=== PATIENT | male | born 1945 | race Caucasian/White ===

== ENCOUNTER 2023-09-26 17:28 | Emergency (ER) | payer MEDICARE, SELFPAY ==
[2023-09-26 17:30] VITALS: BP 145/70; BMI 35.0
[2023-09-26 18:19] LABS: % Basophils 0.4 % (0-2); % Immature Granulocytes 0.4 % (0-0.5); % Lymphocytes 15.2 % (20.5-51.1); % Monocytes 16.3 % (1.7-9.3); % Neutrophils 65.7 % (42.2-75.2); Absolute Eosinophils 0.1 10^3/uL (0-0.7); Absolute Lymphocytes 0.7 10^3/uL (1.2-3.4); Absolute Monocytes 0.7 10^3/uL (0.1-0.6); Absolute Neutrophils 2.9 10^3/uL (1.4-6.5); Hematocrit 30.5 % (39.0-52.0); Hemoglobin 9.9 g/dL (13.0-18.0); Mean Corp Hgb Conc. 32.5 g/dL (33.0-37.0); Mean Corpuscular Hgb 22.3 pg (27.0-31.0); Mean Corpuscular Volume 68.7 fL (80.0-94.0); Nucleated Red Blood Cells % 0.7 % (-); Platelet Count 126 10^3/uL (130-400); Red Blood Cell Count 4.44 10^6/uL (4.70-6.10); Red Cell Dist. Width 16.2 % (11.5-14.5); White Blood Cell Count 4.5 10^3/uL (4.8-10.8)
[2023-09-26 18:43] LABS: Blood Urea Nitrogen 42 mg/dl (9-20); Calcium 9.3 mg/dl (8.4-10.2); Carbon Dioxide 27 mmol/L (22-30); Chloride 101 mmol/L (98-107); Estimated Creatinine Clearance 53 ml/min; Glucose 88 mg/dl (70-99); Sodium 136 mmol/L (135-145); eGFR 51.77
--- NOTE | 2023-09-26 19:19 | ED.GENMED ---
History of Present Illness
General
Chief Complaint: Dehydration Symptoms
Source: patient
Exam Limitations: none
Time Seen by Provider: 09/26/23 18:45
History of Present Illness
History of Present Illness:
This is a 78 year old male that comes in with c/o dehydration. States that he was diagnosed with Multiple Myeloma. States that about 2 months ago they changed his medication and he feels that he is taking to much diuretics. States tat he felt
dehydrated and lightheaded. States that his PCP told him to come to the ER as his sodium may be low. States that he is up urinating every 40min at night. Denies any fever, chills, chest pain, SOB, abd pain, nausea, vomiting, diarrhea, headache,
urinary burning
Past History
Past History
ED Past Medical History: Arrthythmia (Atrial fibrillation), Cancer (Multiple Myeloma), CHF, COPD, HTN, Hypercholesterolemia, NIDDM and Other (Thalassemia, )
ED Past Surgical History: Cardiac (Ablation)
Social History
Tobacco: Former smoker
Alcohol: None
Drug: None
Personal:
Living: alone
Review of Systems
Review of Systems
All Other Systems: ROS reviewed and negative except as documented in HPI and ROS
Constitutional: Reports no symptoms; Denies fever or chills
EENT: Reports no symptoms
Respiratory: Reports no symptoms; Denies cough or trouble breathing
Cardiac: Denies chest pain
ABD/GI: Reports no symptoms; Denies abdominal pain, nausea, vomiting or diarrhea
: Reports no symptoms; Denies dysuria or urgency
Musculoskeletal: Reports no symptoms
Skin: Reports no symptoms
Neurological: Reports other (Lightheaded); Denies dizzy or headache
Psychiatric: Reports no symptoms
Phy Exam
General Physical Exam
General Presentation: well appearing and no apparent distress
General age: appears stated age
General Skin: warm
General Habitus: elderly and obese
General Mental: alert
General Hydration: dry mucous membranes
ENT Exam
ENT Exam: TM's normal, pharynx normal and neck supple
Eye Exam
Eye Exam: EOMI
Cardiovascular Exam
Cardiovascular Exam: regular rate/rhythm, no edema and normal peripheral pulses
Pulmonary Exam
Pulmonary Exam: no respiratory distress, no rales, no crackles, no rhonchi, no cough and other (Faint Exp wheezing throughout)
Gastrointestinal Exam
Gastrointestinal Exam: normal bowel sounds, non tender, soft, no organomegaly, no pulsatile mass, non distended and other (Obese)
Musculoskeletal Exam
Musculoskeletal Exam: full ROM and no edema
Skin Exam
Skin Exam: normal color, warm/dry, no rash and no petechia
Psychiatric Exam
Psychiatric Exam: normal mood/affect
Course
Orders/Labs/Results
Orders:
Orders
09/26/23 17:32
Electrocardiogram (*1) Urgent
Reason for Study: Chest Pain
EKG- Treatment ONCE
09/26/23 17:42
Basic Metabolic Panel Urgent
Complete Blood Count/With Diff Urgent
09/26/23 19:18
0.9% Sodium Chloride 1000 ml [Nss] 1,000 ml IV BOLUS
09/26/23 19:19
Orthostatic VS- Treatment ONCE
Abnormal Lab Results
09/26/23
17:42
WBC 4.5 L 10^3/uL
(4.8-10.8)
RBC 4.44 L 10^6/uL
(4.70-6.10)
Hgb 9.9 L g/dL
(13.0-18.0)
Hct 30.5 L %
(39.0-52.0)
MCV 68.7 L fL
(80.0-94.0)
MCH 22.3 L pg
(27.0-31.0)
MCHC 32.5 L g/dL
(33.0-37.0)
RDW 16.2 H %
(11.5-14.5)
Plt Count 126 L 10^3/uL
(130-400)
Absolute Lymphs (auto) 0.7 L 10^3/uL
(1.2-3.4)
Absolute Monos (auto) 0.7 H 10^3/uL
(0.1-0.6)
Lymphocytes % 15.2 L %
(20.5-51.1)
Monocytes % 16.3 H %
(1.7-9.3)
BUN 42 H mg/dl
(9-20)
Creatinine 1.4 H mg/dL
(0.7-1.3)
09/26/23 17:42
09/26/23 17:42
Pancytopenia, Dehydration.
Vital Signs
Initial and Last Documented VS:
Initial Vital Signs
Temp Pulse Resp BP Pulse Ox
98.2 F 81 16 145/70 98
09/26/23 17:30 09/26/23 17:30 09/26/23 17:30 09/26/23 17:30 09/26/23 17:30
Last Documented Vital Signs
Temp Pulse Resp BP Pulse Ox
98.2 F 83 16 141/78 97
09/26/23 17:30 09/26/23 21:05 09/26/23 17:30 09/26/23 21:05 09/26/23 21:05
MDM/Problems Addressed
Differential Diagnosis Includes:
Dehydration.
MDM/Problems Addressed:
This is a 78 year old male that comes in with c/o possible dehydration. States that [facility]. today he just felt a little lightheaded so his PCP told him to come to the ER as his Sodium may be off.
Will check labs and give IV fluids. Will also get Orthostatic vitals.
Back into see patient. Explained that his BUN is elevated and his Cr is very slightly elevated. This can happen with Dehydrated or due to patient medication. Patient states that he feels fine. Will have patient hold his Lasix tonight and follow up
with the PCP and [facility]. They may want to review patient medication and decrease his Diuretic. Patient to return with any concerns,
Chronic conditions affecting care: DM, HTN and COPD
Acute Exacerbation and/or Progression of Chronic Illness:
NA
*Pulse Oximetry
Patient hypoxic: no
*EKG
Interpreted by ED Provider?: Yes
Heart Rate: 94
Rate: normal
Rhythm: sinus (vs atrial fib) and PVC's
[place]: left axis deviation
Interval: normal interval
QRS Pattern: normal QRS
Ischemia: no ischemia
*Critical Care Note
Total Time (30-74mins, 75-104mins- exclusive of procedures): Not Applicable
ED Attending Note
-
Portions of this chart may have been created with voice recognition software.� Occasional wrong word or��sound alike� substitutions may have occurred due to the inherent limitations of voice recognition software.
Discharge Plan
Departure
Patient Disposition: Home (Routine Discharge)
Date of Disposition: 09/26/23
Time of Disposition: 21:42
Patient with high blood pressure during this ER visit?: Yes
Condition: Good
Covid-19: Not Applicable
Discharge Problem:
Dehydration
Instructions: Dehydration, Adult (DC), BLOOD PRESSURE
Prescriptions:
No Action
venlafaxine [Effexor XR] 37.5 MG capsule,extended release 24hr
75 mg PO DAILY
cetirizine 10 MG tablet
10 mg PO DAILY
pantoprazole 40 MG tablet,delayed release (DR/EC)
40 mg PO DAILY
rosuvastatin [Crestor] 40 MG tablet
40 mg PO Q48H
Rx Instructions:
01/15/2023, patient states that they take this medication Q48H at bedtime.
dabigatran etexilate [Pradaxa] 150 MG capsule
150 mg PO BID
multivitamin with folic acid [Tab-A-Celena] 1 TABLET tablet
1 tab PO DAILY
furosemide [Lasix] 40 mg tablet
40 mg PO DAILY Qty: 7 0RF
sennosides [senna] 8.6 mg Tablet
8.6 mg PO DAILY
polyethylene glycol 3350 [Miralax] 17 gram Powder In Packet
17 g PO DAILY
amiodarone 200 mg Tablet
200 mg PO DAILY
hydralazine 100 mg Tablet
100 mg PO BID
bumetanide [Bumex] 1 mg Tablet
1 mg PO BID
losartan 100 mg Tablet
50 mg PO HS
metformin 500 mg Tablet Extended Release 24hr
500 mg PO QPM
metformin 500 mg Tablet Extended Release 24hr
1,000 mg PO DAILY
potassium chloride 20 mEq Tablet Extended Release
20 meq PO TID
Referrals:
Charly Hernandez DO [Family Provider] - Follow up in 2-3 days
Activity Restrictions/Additional Instructions:
As discussed, your blood work shows that you are anemic and that your were dehydrated. Please increase your water intake to 8-8oz glasses daily. Follow up with the family doctor and the [facility] to [facility] you [facility]. They may need to
decrease your Diuretics. IF YOU HAVE DIZZINESS, OR YOU HAVE ANY OTHER CONCERNS PLEASE RETURN TO THE EMERGENCY ROOM
Interventions
Interventions:
*Risk Screen - Suicide Last Done: 09/26/23 17:30
*Neglect/Abuse Screening Last Done: 09/26/23 17:30
Discharge Date and Time
Print Language: DIVEHI
[2023-09-26] MEDS: NSS 1000 IV (20:18)
[2023-09-26 20:59] VITALS: BP 141/78; BP 143/82; BP 163/85; PULSE 80; PULSE 84; PULSE 87
[2023-09-26 21:05] VITALS: BP 141/78
== END 2023-09-26 21:58 | disposition home or self-care (01) ==
LOC: EMR 17:28
PROVIDERS: Student in an Organized Health Care Education/Training Program; EMERGENCY PHYSICIAN Emergency Medicine; FAMILY PHYSICIAN Family Medicine
DX: E86.0 Dehydration (principal); I11.0 Hypertensive heart disease with heart failure; I50.9 Heart failure, unspecified; E11.9 Type 2 diabetes mellitus without complications; J44.9 Chronic obstructive pulmonary disease, unspecified; Z87.891 Personal history of nicotine dependence
CPT/HCPCS: 99284; 96360; 80048; 85025; 93005

== ENCOUNTER → 2024-07-12 10:44 | Outpatient (REF) | payer MEDICARE, OTHER, SELFPAY | LOC: RAD 10:44 | PROVIDERS: ATTENDING PHYSICIAN Family Medicine | DX: R05.1 Acute cough (principal) | CPT/HCPCS: 71046 ==

== ENCOUNTER → 2024-12-05 11:15 | Outpatient (REF) | payer MEDICARE, OTHER, SELFPAY | LOC: RAD 11:15 | PROVIDERS: ATTENDING PHYSICIAN Family Medicine | DX: R05.1 Acute cough (principal) | CPT/HCPCS: 71046 ==